=== PATIENT | female | born 1940 | race Caucasian/White ===

== ENCOUNTER 2024-12-14 07:01 | Day surgery (SDC) | payer MEDICARE, OTHER ==
[2024-12-08 14:53] VITALS: BP 134/82
[~2024-12-14] VITALS: Ht 157.5 cm; Wt 87.7 kg
[~2024-12-14 07:01] MED LIST: CALCIUM + D SO1 EACH PO; CEFAZOLIN SODIUM 2 GM/20 ML SYR IV SCH; GABAPENTIN 600 MG TAB PO SCH; GLUCOSAMINE CO1 EACH PO; IBLOOD GLUCOSE TEST STRIP 1 EA TEST VI PRN; INTRA-ARTICULAR ANALGESIC INJECTION XX SCH; LACTATED RINGER'S 1,000 ML IV SCH; LEVOTHYROXINE50 MC1 PO; LIDOCAINE HCL 1% 5 ML SDV INJ ONE; METOPROLOL SUCC50 MG PO; OXYCODONE HCL 5 MG TAB PO SCH; PANTOPRAZOLE SODIUM 40 MG TABEC PO SCH; PRESERVISION A1 EAC3 PO; ROPIVACAINE IN 0.9% SOD CHL/PF 545 ML ELS.PMP.HR IRRIGATION SCH; Ropivacaine HCl 20 MG/10 ML AMP ONE; TRANEXAMIC ACID IN NACL,ISO-OS 1,000 MG/100 ML PIGGYBACK IV SCH; TYLENOL EXTRA500 MG PO; VOLTAREN ARTHRI20 GM TP; ondansetron HCL 4 MG TAB PO SCH
--- NOTE | 2024-12-14 07:23 | NUR ---
PT NOT AVAILABLE FOR VISIT. PROVIDED PRAYER.
[2024-12-14 07:25] VITALS: BP 163/88
[2024-12-14] MEDS ORDERED: FISH OIL 1,2001 EACH PO (07:29)
[2024-12-14] MEDS ORDERED: Ropivacaine HCl 0.5% 30 ML VIAL ONE (07:51)
[2024-12-14] MEDS ORDERED: SODIUM CHLORIDE 0.9% 20 ML IV ONE (07:51)
[2024-12-14] MEDS ORDERED: LIDOCAINE HCL 2% 5 ML SDV ONE ×3 (07:51→09:53)
[2024-12-14] MEDS ORDERED: DEXAMETHASONE SOD PHOS 4 MG/ML VIAL ONE (07:52)
[2024-12-14] MEDS ORDERED: propofoL 200 MG/20 ML VIAL ONE ×4 (07:52→10:27)
[2024-12-14] MEDS ORDERED: dexmedeTOMIDine HCl 200 MCG/2 ML VIAL ONE (07:52)
[2024-12-14] MEDS ORDERED: KETOROLAC TROMETHAMINE 30 MG/ML VIAL IV PRN (09:15)
[2024-12-14] MEDS ORDERED: OXYCODONE HCL 5 MG TAB PO PRN (09:15)
[2024-12-14] MEDS ORDERED: ondansetron HCL 4 MG/2 ML VIAL ONE (09:23)
[2024-12-14] MEDS ORDERED: LACTATED RINGER'S 1,000 ML IV ONE (09:53)
[2024-12-14] MEDS ORDERED: droPERidol 5 MG/2 ML VIAL IV PRN (10:00)
[2024-12-14] MEDS ORDERED: PROCHLORPERAZINE EDISYLATE 10 MG/2 ML VIAL IV PRN (10:00)
[2024-12-14] MEDS ORDERED: IBLOOD GLUCOSE TEST STRIP 1 EA TEST VI PRN (10:00)
[2024-12-14] MEDS ORDERED: fentaNYL citrate 50 MCG/ML SDV IV PRN (10:00)
[2024-12-14] MEDS ORDERED: NALOXONE HCL 0.4 MG SYR IV PRN (10:00)
[2024-12-14] MEDS ORDERED: HYDROmorphone HCL 1 MG/ML SYR IV PRN (10:00)
[2024-12-14] MEDS ORDERED: ondansetron HCL 4 MG/2 ML VIAL IV PRN (10:00)
[2024-12-14] MEDS ORDERED: ePHEDrine sulfate 50 MG/ML AMP ONE (10:09)
[2024-12-14] MEDS ORDERED: TRANEXAMIC ACID 1,000 MG/10 ML AMP ONE (10:17)
[2024-12-14] MEDS ORDERED: TRANEXAMIC ACID IN NACL,ISO-OS 1,000 MG/100 ML PIGGYBACK IV SCH (11:00)
--- NOTE | 2024-12-14 11:22 | NUR ---
12/14/24 1122 Inez Cohn PATIENT IS REPORTING MEDIAL, ANTERIOR LEFT KNEE PAIN ON ARRIVAL TO PACU. SHE IS WRITHING IN THE BED AND REPORTS "I'M JUST TRYING TO GET IN A COMFORTABLE POSITION. PRN GIVEN FOR PAIN. KRISS MOORE WILL TALK TO KRISS RAYA ABOUT RE-BLOCK.
[2024-12-14 11:59] VITALS: BP 175/83
--- NOTE | 2024-12-14 12:00 | NUR ---
Patient returns to unit from PACU. Report taken from DEA Wiley. Patient reports he pain a 4/10 and is tolerable. Vital signs obtained. Patient hypertensive. Patient has dressing intact to left knee. No drainage noted. Cryocuff applied to left knee. She denies any nausea. Water and jell-o provided to patient. spinal seems to have resloved at this time. She is able to feel sharpness to the bottom of both of her feet. I explained the expectatins for the remainder of her stay here and she expressed understanding. She denies any needs at this time. Bed in lowest position, call light within reach.
--- NOTE | 2024-12-14 13:00 | NUR ---
Hourly rounding on patient. Patient states that she is doing well with her pain a /10. Vital signs obtained and patient is still slightly hypertensive. Cryocuff still in place. dressing is still clean, dry, and intact. OnQ in place. we have talked about how to take care of the OnQ pump. Patient stating that she is cold. Warm air applied to between patient's blankets. she denies any other needs at this time. Call light within reach. bed in lowest position
--- NOTE | 2024-12-14 13:02 | OR ---
[facility] [address], [place] [address] Signed DATE OF OPERATION: 12/14/2024 SURGEON: Demario Rocha MD PREOPERATIVE DIAGNOSIS: Left knee degenerative joint disease. POSTOPERATIVE DIAGNOSIS: Left knee degenerative joint disease. PROCEDURE PERFORMED: Left total knee arthroplasty with Moustapha. PROFESSOR OF ANTHROPOLOGY: Prema Doty PA-C. Prema was present and critical for all portion of procedure. ANESTHESIA: Spinal. BLOOD LOSS: 166 mL. IMPLANTS: Luna Triathlon size 4, 10 mm poly, and 35 mm patella. BRIEF HISTORY: Kim is an 84-year-old with pain in both knees. Nonoperative treatment was not successful. She wished to proceed with knee replacement. Risks, benefits, and alternatives were discussed and she understood and wished to proceed. DESCRIPTION OF PROCEDURE: Once consent was obtained, she was taken to the operating room. After adequate anesthesia, she was placed on the operating room table with a hip bump. Leg was prepped and draped in a standard sterile fashion. The left knee was approached through standard anterior midline incision. A mid vastus arthrotomy was performed. The MCL was elevated as a sleeve around the posteromedial corner. The infrapatellar fat pad was excised. The anterior horns of both menisci were gone. The ACL was gone as well. The navigation arrays were placed in the medial femoral condyle and the proximal tibia. The leg was then registered with the computer, followed by the fine anatomic points of the knee. Electronically Signed By: DEMARIO ROCHA MD 12/14/24 1302 PATIENT NAME: KIM HAWTHORNE OPERATIVE REPORT DATE OF : 38 REPORT #: [id number] PHYSICIAN: DEMARIO ROCHA MD PCP: TONY ROSAS MD REPORT IS CONFIDENTIAL AND NOT TO BE RELEASED WITHOUT AUTHORIZATION [facility] [address], [place] [address] Signed The ligamentous poses were then taken. There were slight adjustments made to the tibia and a little bit of external rotation to the femur. Once this was completed, the robot was brought in and the four straight cuts and 2 angle cuts were taken with care taken to protect the patellar tendon and MCL. The bony remnants removed as were any remaining osteophytes. The posterior osteophytes removed off the femur and posterior release was performed. The remaining meniscus particularly lateral meniscus was removed. The trials were then positioned, knee was taken from 0 to 130 degrees with excellent stability. The patella tracked well. The patella was cut sized and drilled for a 35 mm patella. The distal femoral drill holes were completed. The proximal tibia was finished using the keel punch, followed by drill holes. She had reasonably good bone quality, we elected to go with a non-cemented prosthesis. The prosthesis was opened up and the tibia was impacted into position first, followed by the polyethylene. The femur was then impacted and the knee was extended and nicely loaded. The patella was clamped into position, and again was noted to track well. The periarticular soft tissues were injected with 80 mL of 0.25% Marcaine with epinephrine. The On-Q pain pump was percutaneously placed into the adductor canal from the suprapatellar pouch. The knee was irrigated using a bottle of Surgiphor, followed by normal saline. The arthrotomy was then closed using a combination of #2 FiberWire and #2 StrataFix. The subcutaneous tissue with 0-Stratafix and skin with 3-0 Stratafix. The wound was sealed with LiquiBand and Steri-Strips. She was awakened and taken to the recovery room in satisfactory condition. All sponge, needle, and instrument counts were correct. Demario Rocha MD BA/MODL /[id number] Copies: ~ Electronically Signed By: DEMARIO ROCHA MD 12/14/24 1302 PATIENT NAME: KIM HAWTHORNE OPERATIVE REPORT DATE OF : 38 REPORT #: [id number] PHYSICIAN: DEMARIO ROCHA MD PCP: TONY ROSAS MD REPORT IS CONFIDENTIAL AND NOT TO BE RELEASED WITHOUT AUTHORIZATION
[2024-12-14 13:08] VITALS: BP 156/71
[2024-12-14 14:00] VITALS: BP 144/73
--- NOTE | 2024-12-14 14:00 | NUR ---
Bennettuly rounding on patient. She states she is doing well. vital signs obtained. She denies any needs. dressing is clean dry and intact and cryo cuff is still in place. OnQ pump in place. Informed patietn that we are just waiting for Physical therapy to assess her and as long as she passes PT, she is good to go home. She denies any needs at this time. Call light within reach. bed in lowest position.
[2024-12-14] MEDS ORDERED: DICLOFENAC SODI75 MG PO (14:30)
[2024-12-14] MEDS ORDERED: ASPIRIN325 MG PO (14:30)
[2024-12-14] MEDS ORDERED: OXYCODONE HCL5 MG PO (14:30)
[2024-12-14] MEDS ORDERED: GABAPENTIN300 MG PO (14:31)
[2024-12-14] MEDS ORDERED: ACETAMINOPHEN 500 MG TAB PO SCH (15:00)
[2024-12-14] MEDS ORDERED: GABAPENTIN 300 MG CAP PO SCH (15:00)
--- NOTE | 2024-12-14 15:00 | NUR ---
Patient being evaluated by physical therapy at this time
[2024-12-14 16:00] VITALS: BP 151/77
[2024-12-14] MEDS ORDERED: CEFAZOLIN SODIUM 2 GM/20 ML SYR IV SCH (16:00)
--- NOTE | 2024-12-14 16:10 | NUR ---
Patient has met all discharge criteria at this time. She has passed physical therapy, has eaten and drank, has voided, and her pain is under control. she rates her pain as a 1/10. Her last dose of antibiotics was given along with tylenol and gabapentin. Her was then removed. Patient is dressed and Dr. Rocha has given the verbal order to discharge the patient. Discharge instructions were reviewed in detail with the daughter present. They both expressed understanding of discharge instructions. Patient was then discharged via wheelchair where her daughter is to take her home
[2024-12-14] MEDS ORDERED: ASPIRIN 325 MG TAB PO SCH (21:00)
[2024-12-15] MEDS ORDERED: DICLOFENAC SOD 75 MG TABEC PO SCH (08:00)
[2024-12-15] MEDS ORDERED: CELECOXIB 200 MG CAP PO SCH (08:00)
== END 2024-12-14 16:10 | disposition home or self-care (01) ==
LOC: DS 07:01
PROVIDERS: ATTEND Specialist
PROC: 0SRD0JZ Replacement of Left Knee Joint with Synthetic Substitute, Open Approach (ICD-10-PCS; principal; 2024-12-14 09:25)
DX: M17.0 Bilateral primary osteoarthritis of knee (principal); E03.9 Hypothyroidism, unspecified; Z79.899 Other long term (current) drug therapy
CPT/HCPCS: 01400; 64447; 64450; 64454; 73560; 76942; 97110; 97161; A9270; C1713; C1776; J0690; J1100; J2003; J2405; J2704; J2795; J3010; J7121; J7999

== ENCOUNTER 2025-09-26 16:01 | Emergency (ER) | payer MEDICARE, OTHER | END 2025-09-26 18:36 | disposition home or self-care (01) | LOC: ED 16:01 | DX: I47.10 Supraventricular tachycardia, unspecified (principal); Z88.8 Allergy status to other drugs, medicaments and biological substances; Z59.89 Other problems related to housing and economic circumstances ==